=== PATIENT | male | born 1975 | race Caucasian/White ===

== ENCOUNTER 2021-02-23 09:19 | Outpatient (CLI) | payer OTHER, SELFPAY ==
--- NOTE | 2021-02-23 11:15 | NEURO_ITS ---
Impression: # Complains of tingling fingers of right hand. # Not enough to make electrical diagnosis of Carpal Tunnel Syndrome at this time. # Normal F-waves. # Normal needle/EMG exam. Nerve Conduction Studies Anti Sensory Summary Table Stim Site NR Peak (ms) P-T Amp (?V) Site1 Site2 Delta-P (ms) Dist (cm) Asher (m/s) Right Median Anti Sensory (2-3nd Digit) Wrist 3.3 20.1 Wrist 2-3nd Digit 3.3 14.0 42 Wrist 3.3 52.4 Wrist 2-3nd Digit 3.3 14.0 42 Right Radial Anti Sensory (Base 1st Digit) Wrist 2.5 10.3 Wrist Base 1st Digit 2.5 0.0 Right Ulnar Anti Sensory (5th Digit) Wrist 2.7 11.5 Wrist 5th Digit 2.7 14.0 52 Motor Summary Table Stim Site NR Onset (ms) O-P Amp (mV) Site1 Site2 Delta-0 (ms) Dist (cm) Asher (m/s) Right Median Motor (Abd Poll Brev) Wrist 3.6 5.3 Elbow Wrist 5.2 29.0 56 Elbow 8.8 5.3 Right Ulnar Motor (Abd Dig Minimi) Wrist 2.7 5.3 A Elbow Wrist 5.6 31.0 55 A Elbow 8.3 4.6 F Wave Studies NR F-Lat (ms) L-R F-Lat (ms) Right Median (Mrkrs) (Abd Poll Brev) 30.35 Right Ulnar (Mrkrs) (Abd Dig Min) 31.24 EMG Side Muscle Nerve Root Ins Act Fibs Amp Dur Recrt Comment Right 1stDorInt Ulnar C8-T1 Nml Nml Nml Nml Nml Right Ext Indicis Radial (Post Int) C7-8 Nml Nml Nml Nml Nml Right Ext Digitorum Radial (Post Int) C7-8 Nml Nml Nml Nml Nml Right BrachioRad Radial C5-6 Nml Nml Nml Nml Nml Right PronatorTeres Median C6-7 Nml Nml Nml Nml Nml Right Abd Poll Brev Median C8-T1 Nml Nml Nml Nml Nml Right ABD Dig Min Ulnar C8-T1 Nml Nml Nml Nml Nml MTDD
== END 2021-02-23 09:20 | disposition home or self-care (01) ==
PROVIDERS: PCP Internal Medicine; Visit Provider Internal Medicine
DX: G56.01 Carpal tunnel syndrome, right upper limb (principal)
CPT/HCPCS: 95886; 95909

== ENCOUNTER 2024-02-29 07:01 | Outpatient (CLI) | payer OTHER, SELFPAY ==
--- NOTE | ~2024-02-29 | MR_ITS ---
EXAMINATION: MR shoulder LT wo con DATE: 03/02/2024 10:30 INDICATION: Left shoulder pain. Palpable pop while digging. TECHNIQUE: Magnetic resonance imaging (MRI) of the left shoulder was performed without intravenous co ntrast. Sequences included axial PD-weighted FS FSE, coronal oblique PD-weighted FS FSE, coronal obli que T2-weighted FS FSE, sagittal PD-weighted FS FSE, and sagittal T1-weighted SE. COMPARISON: None. FINDINGS: Coracoacromial arch: The acromion undersurface is minimally curved in morphology (type I-II). The coracoacromial ligament is normal. Mild acromioclavicular osteoarthritis. Rotator cuff: Moderate supraspinatus and mild infraspinatus tendinopathy. There is a severe partial thickness tear along the superior facet footplate of the supraspinatus tendon tear involves the majority of the thic kness of the tendon appearing to spare the articular surface. The tear extends 14 mm AP along the john tplate with a 6 mm defect in the overlying bursal side of the tendon. There is underlying subcortical edema-like signal change along the superior facet with subcortical cystic change anteriorly. The ter es minor tendon is normal. Minimal tendinopathy without tear at the distal subscapularis tendon. Norm al rotator cuff muscle bulk and signal. Biceps tendon, glenoid labrum and glenohumeral cartilage: Long head of the biceps tendon is normal. Glenoid labrum is normal. Glenohumeral cartilage is normal. Fluid: Mild increased fluid signal in the long head biceps tendon sheath disproportionate to the physiologic amount fluid in the glenohumeral joint space consistent with possible mild bicipital tenosynovitis. No loose osteochondral bodies. Small amount of fluid in the subacromial/subdeltoid bursa consistent w ith mild to moderate bursitis. Bones: Bone alignment is normal. No fracture or pathologic marrow replacing process. IMPRESSION: 1. Moderate supraspinatus and mild infraspinatus tendinopathy with small severe partial thickness bur demi sided tear at the distal supraspinatus tendon. 2. Mild to moderate subacromial/subdeltoid bursitis. 3. Possible mild bicipital tenosynovitis. Reviewed, dictated and finalized at location B. IMPRESSION: 1. Moderate supraspinatus and mild infraspinatus tendinopathy with small severe partial thickness bursal sided tear at the distal supraspinatus tendon. 2. Mild to moderate subacromial/subdeltoid bursitis. 3. Possible mild bicipital tenosynovitis.
== END 2024-02-29 07:02 | disposition home or self-care (01) ==
LOC: CHSIMG 07:02
PROVIDERS: PCP Internal Medicine; Visit Provider Internal Medicine
DX: M67.814 Other specified disorders of tendon, left shoulder (principal); M75.52 Bursitis of left shoulder; M25.512 Pain in left shoulder
CPT/HCPCS: 73221

== ENCOUNTER 2024-03-26 16:06 | Outpatient (CLI) | payer OTHER, SELFPAY ==
--- NOTE | ~2024-03-26 | XR_ITS ---
XR shoulder LT min 2V Ordering provider: Delfino Brown MD History: . M25.512 - Pain in left shoulder . Comparison: None. FINDINGS: BONES: No acute fracture or dislocation. JOINT SPACES: The acromioclavicular joint shows slightly osteoarthritic changes. The glenohumeral conchita nt is normal. SOFT TISSUES: Normal. IMPRESSION: No acute osseous abnormality left shoulder. Reviewed, dictated and finalized at location A.
== END 2024-03-26 16:07 | disposition home or self-care (01) ==
PROVIDERS: PCP Internal Medicine; Visit Provider Orthopaedic Surgery
DX: M25.512 Pain in left shoulder (principal)
CPT/HCPCS: 73030

== ENCOUNTER 2024-04-08 16:07 | Outpatient (RCR) | payer OTHER, SELFPAY ==
--- NOTE | 2024-04-08 17:08 | OPREHPOC ---
Outpatient Therapy Plan of Care This is a Multidisciplinary Plan of Care that may contain components documented by all disciplines (PT, OT, and ST.) PT Problem 1 PT Problem #1 Knowledge Deficit PT Goal 1 Goal / Goal Update 1. independent and compliant with HEp Target Visit 6 PT Problem 2 PT Problem #2 Pain PT Goal 1 Goal / Goal Update 1. reduce pain at worst to 3/10 or less in the L shoulder Target Visit 12 PT Problem 3 PT Problem #3 Impaired Strength PT Goal 1 Goal / Goal Update 1. improve L shoulder strength to 4+/5 or better overall Target Visit 12 PT Problem 4 PT Problem #4 Impaired Range of Motion PT Goal 1 Goal / Goal Update 1. 160 degrees active L shoulder flexion 2. 155 degrees active L shoulder abduction 3. 80 degrees active L shoulder ER 4. 70 degrees active L shoulder IR Target Visit 12 PT Problem 5 PT Problem #5 Impaired Functional Mobil PT Goal 1 Goal / Goal Update 1. quick dash to display 15% or less functional deficits 2. patient to lift 10lbs to shoulder level shelf with the L UE away from body 3. patient to lift 5lbs overhead to tall shelf with the L UE 4. patient to lay supine and hold 5lbs up from body with L UE 5. 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
--- NOTE | 2024-04-08 17:08 | PTOPEVAL1 ---
Assessment and note entered by JT File, PT Evaluation Information Assessment Status Evaluation Subjective Information patient reports he has a severe partial tear of the RTC. he reports he was told it is only holding on by a couple threads. he is anticipating having surgery in june. he reports they are trying therapy to see if is possible to avoid surgery. he reports he injured the shoulder in october of this year. he reports he was digging some holes to plant trees for his mother. he reports he felt a pop while shoveling. he reports it did hurt at the time. he gave it some time to heal, but it never went away. he reports he is able to move it, but struggles to lift overhead, and has to help with the uninvolved arm at times. 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 he reports he has increased pain when rotating and twisting the arm in, and when holding to arm out from his side. Reported Pain Level Pain Score 5: Self Report Assessment PT Clinical Summary mr. carson presents to skilled PT services for evaluation and treatment of L shoulder pain. he displays L shoulder pain, weakness, decreased rom, and decreased functional use. his signs and symptoms indicate injury to the RTC of the L shoulder. he has had MRI to confirm at least a partial tear of the L RTC. at this time, patient is trying to avoid surgery, and hoping PT can improve his function. continued skilled PT is indicated to work on achieving patients goals of return to prior level functional activity performance and quality of life. Plan of Care Interventions Electrical Stimulation,Hot Pack/Cold Pack,Manual Therapy,Neuro Re-education,Patient/Caregiver Educati,Therapeutic Activities,Therapeutic Exercise PT Services Indicated Yes Treatment Frequency and 2x weekly for 12 visits Duration These treatments will address the objective and functional deficits as defined above. The patient will be advanced safely and appropriately in order for the patient to progress towards his/her prior level of function. Additional exercises will be introduced and as well as a comprehensive home exercise program upon discharge, if needed, ?to ensure carryover of functional gains achieved in the clinic. This treatment plan has been reviewed and agreement upon by the patient.
== END 2024-07-07 23:59 | disposition home or self-care (01) ==
LOC: CHSPT 16:07
PROVIDERS: Visit Provider Physician Assistant Surgical
DX: M75.112 Incomplete rotator cuff tear or rupture of left shoulder, not specified as traumatic (principal)
CPT/HCPCS: 97014; 97110; 97150; 97161; G0283

== ENCOUNTER 2024-07-03 00:18 | Day surgery (SDC) | payer OTHER, SELFPAY ==
[2024-06-25 09:56] VITALS: BMI 41.8
--- NOTE | 2024-06-25 09:58 | PC.NURSE ---
Report to the Outpatient Waiting Room, entrance under the green pavilion located off [facility], at time _1000_ on date _[id number]_. Planned Procedure Time: _1200_.? Time changes happen often and if your time is changed the preop area will call you the afternoon before. - You and your visitor will be asked to self-screen and do not enter if you have any COVID symptoms. Please call surgeon if you need to reschedule. - A mask is optional within the hospital at this time. Patients may have clear liquids (water, carbonated beverages, clear teas, apple juice) until 3 hours prior to surgery with a maximum of 20 ounces. - No food from midnight until time of surgery and no smoking. This includes no chewing gum, candy or mints. Take only the following medications with a SIP of water on the morning of surgery: ____None____ DO NOT STOP ANY OF YOUR OTHER PRESCRIPTION MEDICATIONS PRIOR TO SURGERY EXCEPT THE FOLLOWING Medications to discontinue per physician ____None Ok to use Tylenol/Acetaminophen for pain but no Ibuprofen or naproxen. Date to take last dose Please no make-up, nail chadian, hairspray, perfume, deodorant, or body powder the day of surgery.? No jewelry (including any body piercings) or valuables the day of surgery, leave them at home.? Please take a shower or bath the night before, or the morning of, surgery with an antibacterial soap.? Wear comfortable, loose fitting clothing.? - Jewelry must be removed prior to entering the operating room.? Rings and piercings that are not removed may be cut off. - The hospital will not accept responsibility for valuables.? - Please leave all valuables, including medications, at home the day of surgery. If you are going home after surgery, a licensed cdl flatbed truck driver must drive you home.? - NO public transportation without another adult if you receive anesthesia. - We recommend that an adult stay with you for 24 hours following discharge. - We also recommend that you do not drive, make important decision, drink alcoholic beverages, or take any drugs that were not prescribed by your health care provider for at least 24 hours after your discharge time. Follow any additional instructions given to you from your surgeon. Telephone instructions given to __Clinton__and asked if any additional questions and then verbalized understanding. Patient advised to call surgeon office or pre surgery nurse liaison [phone] if any additional questions.
[2024-07-03] VITALS (9 sets, daily range): BP systolic 106–154; BP diastolic 76–104; PULSE 81–99; RESP 12–16; TEMP 36.1–36.4; O2SAT 96–100
[2024-07-03] MEDS: LACTATED RINGERS 1,000 ML 30 ML IV CONT ×2 (10:25→15:06)
[2024-07-03] MEDS: ACETAMINOPHEN 500 MG TABLET 1000 MG PO (10:30)
[2024-07-03] MEDS: KETOROLAC 15 MG/ML VIAL (*BKC) IV PUSH (10:30)
--- NOTE | 2024-07-03 12:14 | WPDANESEPPF ---
Anes - Initial Pre Proc Eval Procedure: Operation Date: 07/03/24 12:00 Proposed Procedures p Left Shoulder Arthroscopic Rotator Cuff Repair with Subacromial Decompression - Delfino Brown MD Date/Time: 07/03/24 12:14 Surgeon: Delfino Brown MD Pre Op Diagnosis: Lt Shoulder Partial Rot Cuff Tear Patient Data Age: 48 Gender: M Height: 1.73 m Weight: 129.2 kg Last Vital Signs Temp 97.5 F L 07/03/24 10:37 Pulse 81 07/03/24 10:37 Resp 16 07/03/24 10:37 BP 140/90 07/03/24 10:37 Pulse Ox 100 07/03/24 10:37 Allergies Allergy/AdvReac Type Severity Reaction Status Date / Time No Known Allergies Allergy Verified 07/03/24 10:10 Home Medications ?Medication ?Instructions ?Recorded ?Confirmed ?Type oxycodone-acetaminophen 5 mg-325 1 - 2 tablet PO Q4-6H PRN pain 7 07/03/24 Rx mg tablet days #30 tabs Patient hx anesthesia problems: none Family hx anesthesia problems: none Results Review: All pre-operative results and documents have been reviewed as part of the pre-operative evaluation. [facility] Past Medical History Medical History Carpal tunnel syndrome, right upper limb Social History Social History Smoking status: Never smoker Alcohol intake: current Substance use: never Substance use type: does not use Do You Feel Safe in your Home?: Yes Lack of Transportation: No Lack of Food: Never True Current Housing: I Have Housing Concerned About Future Housing: No Difficulty Paying Gas/Electric Bills: No Difficulty Paying for Meds: No Currently Unemployed: No Education: High School Diploma/GED Difficulty w/ Childcare or Family Care: No Living arrangements: with family Spiritual care concerns: No Anes - Eval Final PreProcedure Day of Procedure 07/03/24 12:14 Patient weight: morbidly obese Heart: regular rate and rhythm Lungs: clear to auscultation Airway: Mallampati scale class II Neurological: alert and oriented Last oral intake: >/= 8 hours ASA classification: III Emergent: no Anesthetic plan: proceed Anesthesia type and monitoring: general ETT and standard monitoring Results Review: All pre-operative results and documents have been reviewed as part of the pre-operative evaluation. BMI 43, snores, no known LISBET. Informed Consent: The patient's anesthetic plan and its attendant risks and benefits were discussed with the patient/family/POA. Questions were solicited and answers provided to the satisfaction of the patient/family/POA.
--- NOTE | 2024-07-03 12:22 | WPDHPUPDATE1 ---
History and Physical Update Update Date/Time: 07/03/24 12:22 History and Physical has been reviewed, including an updated exam of the patient. There are NO changes in the patient's condition. Risks, benefits, and alternatives have been discussed and questions answered. Patient agrees to proceed with procedure.
[2024-07-03] MEDS: ceFAZolin 3 GM/D5W 100 ML 100 ML IVPB (13:10)
[2024-07-03] MEDS: EPINEPHrine INJ 1 MG/10 ML SYRINGE 3 MG XX (13:44)
--- NOTE | 2024-07-03 15:31 | P.OP_ITS ---
Procedure Note - Detailed Date of Procedure 07/03/24 Pre-op Diagnosis Left shoulder high-grade partial-thickness rotator cuff tear Post-op Diagnosis Other (1. Rotator cuff tear 2. Subacromial impingement 3. Biceps tendinosis 4. Degenerative labral tear) Procedure Performed Left shoulder 1. Arthroscopic rotator cuff repair 2. Arthroscopic subacromial decompression Surgeon Delfino Brown MD Animal Laboratory Helper Katlin Gonzáles PA-C Anesthesia General Findings High-grade bursal side supraspinatus tear with 90% thickness. The articular tissue did look surprisingly healthy despite hyperemia. The tear was repaired with 2 bone tunnels and 6 sutures. The articular supraspinatus tissue was left intact. Evidence of subacromial impingement with acromial spurs. The biceps and intra-articular tissues were normal. Description of Procedure Preoperative antibiotics were given. An interscalene block was administered in the preoperative area. The patient was bought brought to the operating room. A general anesthetic was administered. The patient was carefully positioned in the beach chair position. The head and neck were carefully positioned. The non operative extremity was also carefully positioned. The shoulder was prepped and draped in the usual sterile fashion. Examination was performed. Standard posterior and anterior arthroscopic portals were established. Inflow achieved with the arthroscopic pump using saline and epinephrine. The glenohumeral joint was carefully inspected. No glenoid or humeral cartilage changes were noted. The biceps was normal. The subscapularis and infraspinatus were intact. The supraspinatus showed hyperemia but no evidence of tearing. This was marked with a PDS suture through a spinal needle and it was noted that the tissue appeared very thin in this area.. Attention was turned to the subacromial space. The bursa was a bit hypertrophic. A complete bursectomy was performed. A crescent tear of the entire supraspinatus was identified. Approximately 1.5 cm tear did not include the infraspinatus fibers. The articular side tissue was intact. At this point, 2 tunnels were created at the rotator cuff. Three sutures were passed through each tunnel. All sutures were then passed through the cuff tissue. A rip stop configuration was performed with the 2nd and 5th sutures being tied in a box. This provided nice compression of the medial aspect of the tear. The sutures were tied arthroscopically. The arthroscopic instruments were removed. The wounds were closed with 3-0 Monocryl subcuticular suture and steri strips. There were no complications. A sling was applied and the patient brought to the recovery room. Physician assistant food service director, Katlin Gonzáles PA-C, required for surgery; including patient positioning, draping, arthroscopic camera operation, maintaining instrument position, suture retrieval, wound closure, and dressing and sling placement. Estimated Blood Loss 10 Pathology None sent Complications No immediate complications Condition Stable Disposition PACU [facility] Billing Surgery - Charge Forward: Surgery Billing
--- NOTE | 2024-07-07 07:14 | WPDANESPNB ---
Anes - Peripheral Nerve Block Date/Time: 07/07/24 07:14 Block done on DOS as below. This note entered late due to inadvertently forgetting to document on the DOS. I have discussed with the patient/family/POA the placement of a peripheral nerve block for post-operative pain management, including associated risks, benefits, complications, and side effects. Alternative methods of post-operative analgesia were detailed. Questions were solicited and answers provided to the satisfaction of the patient/family/POA. Time-Out: A pre-procedural Time-Out was completed immediately before starting the procedure and confirmed: Patient Identification, Site, Procedure, Patient Position and the Availability of Requisite Equipment. Clinical Indications: Acute post-operative pain management requested by the operative surgeon. Nerve Block Insertion Note Anes-nerve block: interscalene left Patient position: supine Skin prep: chlorhexidine Needle: 22 gauge, stimulating, insulated echogenic needle. Needle length: 80 mm Technique: ultrasound Injectate: other (Bupiv 0.5%, 15 mls. ) Observations: tolerated well Complications: none Procedure start time:: 1237 Procedure end time:: 124
== END 2024-07-03 16:52 | disposition home or self-care (01) ==
PROVIDERS: PCP Internal Medicine; Visit Provider Orthopaedic Surgery
PROC: (CPT 29805; principal; 2024-07-03 12:00)
DX: M75.112 Incomplete rotator cuff tear or rupture of left shoulder, not specified as traumatic (principal); M75.42 Impingement syndrome of left shoulder; G56.01 Carpal tunnel syndrome, right upper limb; G89.18 Other acute postprocedural pain; E66.01 Morbid (severe) obesity due to excess calories; Z68.41 Body mass index [BMI] 40.0-44.9, adult; Z79.891 Long term (current) use of opiate analgesic
CPT/HCPCS: 64415; 29827; 29826; A4565; A9270; J0171; J0690; J1100; J1885; J2250; J2270; J2405; J2704; J3010; J7120

== ENCOUNTER 2024-08-17 16:06 | Outpatient (RCR) | payer OTHER, SELFPAY ==
[2024-08-17 16:12] VITALS: BP_SYST 95
--- NOTE | 2024-08-17 17:56 | OPREHPOC ---
Outpatient Therapy Plan of Care This is a Multidisciplinary Plan of Care that may contain components documented by all disciplines (PT, OT, and ST.) PT Problem 1 PT Problem #1 Knowledge Deficit PT Goal 1 Goal / Goal Update Independent with HEP. Target Visit 2 PT Problem 2 PT Problem #2 Pain PT Goal 1 Goal / Goal Update Pt to report 0/10 pain at rest. Pt to report no worse than 3/10 pain with movement /exercise. Target Visit 12 PT Problem 3 PT Problem #3 Impaired Range of Motion PT Goal 1 Goal / Goal Update Pt to reach full L shoulder PROM. Pt to reach 60 degrees active L shoulder ER. Following clearance from doctor, pt to reach 150 degrees active L shoulder flexion. Following clearance from doctor, pt to reach 150 degrees active L shoulder abduction. Target Visit 12 PT Problem 4 PT Problem #4 Impaired Strength PT Goal 1 Goal / Goal Update Pt to improve gross shoulder strength to 5/5 without pain. Target Visit 12 PT Problem 5 PT Problem #5 Impaired Functional Mobility PT Goal 1 Goal / Goal Update Pt to be able to lift 5lbs overhead without pain. Pt to report 20% improvement on QuickDASH. Target Visit 12
--- NOTE | 2024-08-17 17:56 | PTOPEVAL1 ---
Assessment and note entered by Betty Murillo, PT Evaluation Information Assessment Status Evaluation ICD-10 Condition Codes (PT) Pain in left shoulder M25.512,Encounter for other orthopedic aftercare Z47.89 Onset 07/03/24 Subjective Information Pt reports he underwent a rotator cuff repair and subachromial decompression on 07/03/24. He was given home exercises to do at home for ROM and using his ice machine as needed for pain relief. States he saw his doctor last saturday and was cleared of his sling, and was also told not to lift his arm over his head or carry more than 5lbs . Resting pain intensity is mild and increases to a 4/[address] the wrong way. His pain is also increased when reaching behind his back. His pain occasionally wakes him up at night and he has some difficulty with ADLs such as putting on a shirt. Overall he tries to use his R hand for tasks when his L is unable. 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 Reported Pain Level Pain Score 1: Self Report Assessment PT Clinical Summary Mr. Trevino is a 48 yo male presenting to physical therapy for rehabilitation follow a L rotator cuff repair with subachromial decompression on 07/03/24 . He presents with limited passive and active L shoulder ROM, impaired L shoulder strength, and overall reduced functional use of the arm due to pain and post-op restrictions. Due to these deficits, he experiences difficulty reaching behind his back and putting on a shirt, as well as inability to complete normal work activities as a dragline mechanic. He will benefit from skilled PT intervention to improve on these deficits to be able to complete all daily functional and work activities without significant pain. Plan of Care Interventions Electrical Stimulation,Hot Pack/Cold Pack, Intermittent Compression Pump,Manual Therapy,Neuro Re-education,Patient/Caregiver Education, Therapeutic Activities,Therapeutic Exercise,Self- Care/Home Management PT Services Indicated Yes Treatment Frequency and 2x/week for 12 visits Duration These treatments will address the objective and functional deficits as defined above. The patient will be advanced safely and appropriately in order for the patient to progress towards his/her prior level of function. Additional exercises will be introduced and as well as a comprehensive home exercise program upon discharge, if needed, ?to ensure carryover of functional gains achieved in the clinic. This treatment plan has been reviewed and agreement upon by the patient.
--- NOTE | 2024-09-24 17:04 | OPREHPOC ---
Outpatient Therapy Plan of Care This is a Multidisciplinary Plan of Care that may contain components documented by all disciplines (PT, OT, and ST.) PT Problem 1 PT Problem #1 Knowledge Deficit PT Goal 1 Goal / Goal Update Independent with HEP. Target Visit 2 Progress Met PT Problem 2 PT Problem #2 Pain PT Goal 1 Goal / Goal Update Pt to report 0/10 pain at rest. Pt to report no worse than 3/10 pain with movement /exercise. Target Visit 12 Progress Met PT Problem 3 PT Problem #3 Impaired Range of Motion PT Goal 1 Goal / Goal Update Pt to reach full L shoulder PROM. Pt to reach 60 degrees active L shoulder ER. Following clearance from doctor, pt to reach 150 degrees active L shoulder flexion. Following clearance from doctor, pt to reach 150 degrees active L shoulder abduction. Target Visit 12 Progress Met PT Problem 4 PT Problem #4 Impaired Strength PT Goal 1 Goal / Goal Update Pt to improve gross shoulder strength to 5/5 without pain. Target Visit 18 Progress Not Met PT Problem 5 PT Problem #5 Impaired Functional Mobility PT Goal 1 Goal / Goal Update Pt to be able to lift 5lbs overhead without pain. -not met Pt to report 20% improvement on QuickDASH. -met Target Visit 18 Progress Partially Met
--- NOTE | 2024-09-24 17:04 | PTOPPROG ---
Assessment and note entered by Betty Murillo, PT Evaluation Information Assessment Status Progress ICD-10 Condition Codes (PT) Pain in left shoulder M25.512,Encounter for other orthopedic aftercare Z47.89 Onset 07/03/24 Subjective Information Clinton reports his shoulder feels pretty good today and denies pain at rest. He feels like his shoulder is stronger and he's able to move it more and do more with it compared to when he started PT. He only has slight pain occasionally but states it's more of a stretching sensation rather than pain. He sees Dr. Brown on Saturday. Assessment PT Clinical Summary Mr. Trevino has attended 12 total skilled PT visits s/p L RCR with SAD. Since beginning therapy he has made excellent improvements in his L shoulder PROM/AROM as well as mild improvements in his L shoulder strength. He still demonstrates mild strength deficits and experiences difficulty with reaching behind his back and lifting objects overhead. He will benefit from continued skilled PT intervention to continue making progress to be able to complete normal functional and work activities with minimal pain or difficulty. Plan of Care Interventions Electrical Stimulation,Hot Pack/Cold Pack,Manual Therapy,Neuro Re-education,Patient/Caregiver Education,Therapeutic Activities,Therapeutic Exercise,Self-Care/Home Management PT Services Indicated Yes Treatment Frequency and 2x/week for 6 additional visits Duration These treatments will address the objective and functional deficits as defined above. The patient will be advanced safely and appropriately in order for the patient to progress towards his/her prior level of function. Additional exercises will be introduced and as well as a comprehensive home exercise program upon discharge, if needed, ?to ensure carryover of functional gains achieved in the clinic. This treatment plan has been reviewed and agreement upon by the patient.
--- NOTE | 2024-10-06 17:00 | OPREHPOC ---
Outpatient Therapy Plan of Care This is a Multidisciplinary Plan of Care that may contain components documented by all disciplines (PT, OT, and ST.) PT Problem 1 PT Problem #1 Knowledge Deficit PT Goal 1 Goal / Goal Update Independent with HEP. Target Visit 2 Progress Met PT Problem 2 PT Problem #2 Pain PT Goal 1 Goal / Goal Update Pt to report 0/10 pain at rest. Pt to report no worse than 3/10 pain with movement /exercise. Target Visit 12 Progress Met PT Problem 3 PT Problem #3 Impaired Range of Motion PT Goal 1 Goal / Goal Update Pt to reach full L shoulder PROM. -met Pt to reach 60 degrees active L shoulder ER. -met Following clearance from doctor, pt to reach 150 degrees active L shoulder flexion. -met Following clearance from doctor, pt to reach 150 degrees active L shoulder abduction. -not met Target Visit 12 Progress Met PT Goal 2 Goal / Goal Update continue PT Problem 4 PT Problem #4 Impaired Strength PT Goal 1 Goal / Goal Update Pt to improve gross shoulder strength to 5/5 without pain. Target Visit 18 Progress Partially Met PT Goal 2 Goal / Goal Update continue PT Problem 5 PT Problem #5 Impaired Functional Mobility PT Goal 1 Goal / Goal Update Pt to be able to lift 5lbs overhead without pain. -met Pt to report 20% improvement on QuickDASH. -met Target Visit 18 Progress Met
--- NOTE | 2024-10-06 17:01 | PTOPPROG ---
Assessment and note entered by Rhea Raymundo, PT Evaluation Information Assessment Status Progress ICD-10 Condition Codes (PT) Pain in left shoulder M25.512,Encounter for other orthopedic aftercare Z47.89 Onset 07/03/24 Subjective Information Clinton reports his shoulder is doing well and pain free most of the time. He does note some tightness and occasional twinges of pain rated 2-3/10 at most. He has been performing light duty work and is not lifting more than 10 pounds. He feels he is doing well overall. Assessment PT Clinical Summary Clinton Trevino has completed 14 skilled PT visits following a left shoulder RCR with SAD. He is reporting minimal to no pain and has been performing light duty work without difficulty. He is restricting lifting to 10# and under. He demonstrates improved left shoulder AROM to near normal limits, improved left shoulder strength, and improved lifting ability. He does still have restrictions with active abduction and internal rotation behind the back as well as mild strength deficits. He was instructed in an extensive HEP and will be reassessed in 3 weeks to make sure he is not regressing while performing exercises through a home program. He will see his surgeon again on 11/11/24. Plan of Care Interventions Electrical Stimulation,Hot Pack/Cold Pack,Manual Therapy,Neuro Re-education,Patient/Caregiver Education,Therapeutic Activities,Therapeutic Exercise PT Services Indicated Yes Treatment Frequency and Reassess for discharge in 3 weeks after patient is Duration released to home program These treatments will address the objective and functional deficits as defined above. The patient will be advanced safely and appropriately in order for the patient to progress towards his/her prior level of function. Additional exercises will be introduced and as well as a comprehensive home exercise program upon discharge, if needed, ?to ensure carryover of functional gains achieved in the clinic. This treatment plan has been reviewed and agreement upon by the patient.
--- NOTE | 2024-10-27 16:40 | OPREHPOC ---
Outpatient Therapy Plan of Care This is a Multidisciplinary Plan of Care that may contain components documented by all disciplines (PT, OT, and ST.) PT Problem 1 PT Problem #1 Knowledge Deficit PT Goal 1 Goal / Goal Update Independent with HEP. Target Visit 2 Progress Met PT Problem 2 PT Problem #2 Pain PT Goal 1 Goal / Goal Update Pt to report 0/10 pain at rest. Pt to report no worse than 3/10 pain with movement /exercise. Target Visit 12 Progress Met PT Problem 3 PT Problem #3 Impaired Range of Motion PT Goal 1 Goal / Goal Update Pt to reach full L shoulder PROM. -met Pt to reach 60 degrees active L shoulder ER. -met Following clearance from doctor, pt to reach 150 degrees active L shoulder flexion. -met Following clearance from doctor, pt to reach 150 degrees active L shoulder abduction. -met Target Visit 12 Progress Met PT Goal 2 Goal / Goal Update continue Progress Met PT Problem 4 PT Problem #4 Impaired Strength PT Goal 1 Goal / Goal Update Pt to improve gross shoulder strength to 5/5 without pain. Target Visit 18 Progress Met PT Goal 2 Goal / Goal Update continue PT Problem 5 PT Problem #5 Impaired Functional Mobility PT Goal 1 Goal / Goal Update Pt to be able to lift 5lbs overhead without pain. -met Pt to report 20% improvement on QuickDASH. -met Target Visit 18 Progress Met
--- NOTE | 2024-10-27 16:40 | PTOPPROG ---
Assessment and note entered by Rhea Raymundo, PT Evaluation Information Assessment Status Progress ICD-10 Condition Codes (PT) Pain in left shoulder M25.512,Encounter for other orthopedic aftercare Z47.89 Onset 07/03/24 Subjective Information Clinton reports his left shoulder is doing well and pain free most of the time. He notes he has felt better with work activities lately as well but still limits lifting to 10 lbs or less. Assessment PT Clinical Summary Clinton Trevino has completed 15 skilled PT visits following a left shoulder RCR with SAD. He is reporting minimal to no pain and has been performing light duty work without difficulty. He is restricting lifting to 10# and under. He demonstrates improved left shoulder AROM normal limits, improved left shoulder strength, and improved lifting ability. He demonstrates full left shoulder strength today and was able to lift 10# overhead with fluid motion for 10 repetitions without increased pain He has met all goals and will follow up with his surgeon on 11/11/24. We anticipate discharge from PT after his next follow up. Plan of Care Interventions Electrical Stimulation,Hot Pack/Cold Pack,Manual Therapy,Neuro Re-education,Patient/Caregiver Education,Therapeutic Activities,Therapeutic Exercise PT Services Indicated No Treatment Frequency and Discharge unless physician requests more at follow Duration up on 11/11/24 These treatments will address the objective and functional deficits as defined above. The patient will be advanced safely and appropriately in order for the patient to progress towards his/her prior level of function. Additional exercises will be introduced and as well as a comprehensive home exercise program upon discharge, if needed, ?to ensure carryover of functional gains achieved in the clinic. This treatment plan has been reviewed and agreement upon by the patient.
== END 2024-11-15 23:59 | disposition home or self-care (01) ==
LOC: CHSPT 16:06
PROVIDERS: Visit Provider Physician Assistant Surgical
DX: Z47.89 Encounter for other orthopedic aftercare (principal); M25.512 Pain in left shoulder
CPT/HCPCS: 97014; 97110; 97112; 97140; 97161; 97530; 97750; G0283